=== PATIENT | male | born 2000 | race Caucasian/White ===

== ENCOUNTER 2019-09-05 02:56 | Emergency (ER) | payer BC ==
[~2019-09-05] VITALS: Ht 185.4 cm; Wt 81.8 kg
[2019-09-05 04:46] VITALS: BP 122/76; PULSE 64; TEMP 98.6
== END 2019-09-05 04:35 | disposition home or self-care (01) ==
LOC: COL.ER 02:56
DX: G43.909 Migraine, unspecified, not intractable, without status migrainosus (principal); Z98.890 Other specified postprocedural states
CPT/HCPCS: J1200; J1790; J7030